=== PATIENT | male | born 1955 ===

== ENCOUNTER 2017-07-24 20:01 | Inpatient (IN) ==
[2017-07-24] MEDS ORDERED: ALBUTEROL 2.5 MG/3 ML NEB RESP TX PRN ×2 (21:49→22:38)
[2017-07-24] MEDS ORDERED: ONDANSETRON 4 MG/2 ML VIAL IV PRN (21:49)
[2017-07-24] MEDS ORDERED: DEXTROSE 50% 25 GM/50 ML VIAL IV PRN (22:11)
[2017-07-24] MEDS ORDERED: GLUCAGON 1 MG VIAL IM PRN (22:11)
[2017-07-24] MEDS ORDERED: PROPYLENE GLYCOL BOTH EYES PRN (22:38)
[2017-07-24] MEDS ORDERED: PEG BOTH EYES PRN (22:38)
[2017-07-25] MEDS ORDERED: APIXABAN 2.5 MG TABLET PO SCH ×2 (00:37→09:00)
[2017-07-25] MEDS: APIXABAN 2.5 MG TABLET PO SCH ×3 (01:30→21:12)
[2017-07-25 02:26] LABS: Basophils % 0.2 % (0.0-0.8); Eosinophils % 0.1 % (0.00-10.9); Hematocrit 29.6 VOL% (42.0-52.0); Immature Granulocytes % 0.5 %; Immature Granulocytes Absolute 0.06 #; Lymphocytes # 1.4 10*3/uL (1.4-4.0); Lymphocytes % 10.6 % (21.2-54.2); Mean Corpuscular HGB Conc 33.8 GM/DL (32-36); Mean Corpuscular Hemoglobin 33 PG (27-34); Mean Corpuscular Volume 97.4 FL (87-102); Mean Platelet Volume 9.7 FL (9.6-12.0); Monocytes # 0.7 10*3/uL (0.11-0.8); Monocytes % 5.2 % (1.7-12.7); NRBC # 0.02 10*3/uL; Neutrophils % 83.4 % (38.7-73.9); Platelet Count 138 T/CUMM (130-400); Red Blood Count 3.04 MC/CUMM (3.8-5.5); Red Cell Distribution Width 15.1 % (9.3-17.3); White Blood Count 13.2 T/CUMM (4-12)
[2017-07-25 03:05] LABS: Albumin 3.1 G/DL (3.4-5.0); Bilirubin,Total 0.7 MG/DL (0.2-1.0); Calcium 7.9 MG/DL (8.5-10.1); Osmolality,Calculated 280.2 MOS/KG (273-304); Potassium 4.7 MMOL/L (3.5-5.1); Total Protein 6.3 G/DL (6.4-8.3)
[2017-07-25] MEDS ORDERED: CLOPIDOGREL 300 MG TABLET PO ONE (06:31)
[2017-07-25] MEDS: CLOPIDOGREL 75 MG TABLET PO SCH (08:49)
[2017-07-25 08:50] LABS: Hepatitis A Ab IgM Quant 0.14 Index; Hepatitis A Ab IgM Result Negative (Negative); Hepatitis B Core IgM Quant 0.22 Index; Hepatitis B Core IgM Result Negative (Negative); Hepatitis B Surface Ag Quant < 0.10 Index; Hepatitis B Surface Ag Result Negative (Negative); Hepatitis C Virus Ab Quant 0.18 Index; Hepatitis C Virus Ab Result Negative (Negative)
[2017-07-25] MEDS ORDERED: ASPIRIN EC 81 MG TABLET PO SCH (09:00)
[2017-07-25] MEDS: CARVEDILOL 3.125 MG TABLET PO SCH ×2 (09:15→21:13)
[2017-07-25] MEDS: PANTOPRAZOLE 40 MG TABLET PO SCH (09:31)
[2017-07-25] MEDS ORDERED: EPOETIN ALFA 10,000 UNIT/1 ML VIAL IV PRN (16:09)
[2017-07-25] MEDS ORDERED: diphenhydrAMINE CAP 25 MG CAPSULE PO ONE (16:12)
[2017-07-25] MEDS ORDERED: DIAZEPAM 5 MG TABLET PO ONE (16:12)
[2017-07-25] MEDS ORDERED: MAGNESIUM SULF RIDER 2 GM in PREMIX 1 EACH IV PRN (18:36)
[2017-07-25] MEDS ORDERED: POTASSIUM CHLORIDE RIDER 10 MEQ in PREMIX 1 EACH IV PRN (18:36)
[2017-07-26 04:30] LABS: Basophils # 0.1 10*3/uL (0.0-0.2); Basophils % 0.6 % (0.0-0.8); Eosinophils # 0.3 10*3/uL (0.0-0.87); Eosinophils % 2.6 % (0.00-10.9); Hematocrit 31.8 VOL% (42.0-52.0); Hemoglobin 10.3 GM/DL (14.0-18.0); Immature Granulocytes % 0.4 %; Immature Granulocytes Absolute 0.04 #; Lymphocytes # 0.9 10*3/uL (1.4-4.0); Lymphocytes % 8.8 % (21.2-54.2); Mean Corpuscular HGB Conc 32.4 GM/DL (32-36); Mean Corpuscular Hemoglobin 33 PG (27-34); Mean Corpuscular Volume 101.3 FL (87-102); Mean Platelet Volume 9.8 FL (9.6-12.0); Monocytes % 9.5 % (1.7-12.7); NRBC # 0.06 10*3/uL; Neutrophils # 8.3 10*3/uL (1.4-7.4); Neutrophils % 78.1 % (38.7-73.9); Platelet Count 158 T/CUMM (130-400); Red Blood Count 3.14 MC/CUMM (3.8-5.5); Red Cell Distribution Width 15.3 % (9.3-17.3); White Blood Count 10.6 T/CUMM (4-12)
[2017-07-26 05:02] LABS: Calcium 8.4 MG/DL (8.5-10.1); Osmolality,Calculated 276.9 MOS/KG (273-304); Potassium 5.4 MMOL/L (3.5-5.1)
[2017-07-26 05:14] LABS: Risk Ratio 2.55; VLDL CHOLESTEROL 18.2 MG/DL
[2017-07-26] MEDS ORDERED: DIAZEPAM 5 MG TABLET PO ONE (06:30)
[2017-07-26] MEDS ORDERED: diphenhydrAMINE CAP 25 MG CAPSULE PO ONE (06:30)
[2017-07-26] MEDS ORDERED: HEPARIN/NACL 0.9% 2 UNITS/ML 1,000 ML IV ONE (06:51)
[2017-07-26] MEDS ORDERED: MIDAZOLAM 2 MG/2 ML VIAL ONE (07:11)
[2017-07-26] MEDS ORDERED: HYDROmorphone 2 MG/1 ML VIAL ONE (07:11)
[2017-07-26] MEDS ORDERED: NITROGLYCERIN SL 0.4 MG TABLET SL PRN (08:18)
[2017-07-26] MEDS ORDERED: FLUMAZENIL 0.5 MG/5 ML VIAL IV ONE ×2 (09:03→09:33)
[2017-07-26] MEDS ORDERED: ATROPINE 1 MG/10 ML SYRINGE ONE (09:07)
[2017-07-26] MEDS ORDERED: INSULIN REGULAR 100 UNIT/ML ONE (09:14)
[2017-07-26] MEDS ORDERED: VECURONIUM 10 MG VIAL IV ONE (09:15)
[2017-07-26] MEDS ORDERED: DEXTROSE 50% 25 GM/50 ML VIAL IV STA (09:16)
[2017-07-26] MEDS ORDERED: VECURONIUM 10 MG VIAL IV STA (09:17)
[2017-07-26 09:55] LABS: ABG Base Excess -8.1 MMOL/L (-2.5-2.5); ABG HCO3 17.9 MMOL/L (20-26); ABG Oxygen Saturation 99.7 % (95-100); ABG PCO2 38.9 MM HG (35-48); ABG PH 7.278 (7.35-7.45); ABG TCO2 16.6 MMOL/L (23-27)
[2017-07-26 10:12] LABS: Lactic Acid 6.4 MMOL/L (0.4-2.0)
[2017-07-26 10:14] LABS: Alanine Aminotransferase 141 U/L (16-61); Alkaline Phosphatase 187 U/L (45-117); Aspartate Amino Transferase 113 U/L (0-37); Bilirubin,Indirect 0.4 MG/DL (0.0-1.0); Blood Urea Nitrogen 70 MG/DL (7-18); CKMB % 2.9 %; Calcium 9.8 MG/DL (8.5-10.1); Glucose 244 MG/DL (74-106); Osmolality,Calculated 286.9 MOS/KG (273-304); Potassium 3.3 MMOL/L (3.5-5.1); Sodium 129 MMOL/L (136-145); Total Protein 6.3 G/DL (6.4-8.3)
[2017-07-26] MEDS ORDERED: INSULIN REGULAR 100 UNIT/ML IV STA (10:15)
[2017-07-26] MEDS: CLOPIDOGREL 75 MG TABLET PO SCH ×2 (10:24→13:08)
[2017-07-26] MEDS: CALCITRIOL 0.25 MCG CAPSULE PO SCH (10:24)
[2017-07-26] MEDS: PANTOPRAZOLE 40 MG TABLET PO SCH (10:24)
[2017-07-26] MEDS: CARVEDILOL 3.125 MG TABLET PO SCH ×2 (10:24→21:22)
[2017-07-26 12:39] LABS: Ammonia 32 UMOL/L (11-32)
[2017-07-26 13:16] LABS: Basophils % 0.2 % (0.0-0.8); Eosinophils % 0.1 % (0.00-10.9); Hematocrit 32.4 VOL% (42.0-52.0); Immature Granulocytes % 0.7 %; Immature Granulocytes Absolute 0.11 #; Lymphocytes # 0.3 10*3/uL (1.4-4.0); Lymphocytes % 1.6 % (21.2-54.2); Mean Corpuscular Hemoglobin 33 PG (27-34); Mean Corpuscular Volume 97.6 FL (87-102); Mean Platelet Volume 9.7 FL (9.6-12.0); Monocytes # 1.1 10*3/uL (0.11-0.8); Monocytes % 7.2 % (1.7-12.7); NRBC # 0.06 10*3/uL; Neutrophils # 14.3 10*3/uL (1.4-7.4); Neutrophils % 90.2 % (38.7-73.9); Platelet Count 176 T/CUMM (130-400); Red Blood Count 3.32 MC/CUMM (3.8-5.5); Red Cell Distribution Width 15.2 % (9.3-17.3); White Blood Count 15.9 T/CUMM (4-12)
[2017-07-26 13:51] LABS: Hypochromasia 2+; Macrocytosis 1+; Polychromasia Slight
[2017-07-26] MEDS ORDERED: GLUCAGON 1 MG VIAL IM PRN (15:25)
[2017-07-27 04:27] LABS: Basophils % 0.4 % (0.0-0.8); Eosinophils % 0.4 % (0.00-10.9); Hematocrit 29.3 VOL% (42.0-52.0); Immature Granulocytes % 0.4 %; Immature Granulocytes Absolute 0.04 #; Lymphocytes # 0.9 10*3/uL (1.4-4.0); Lymphocytes % 8.5 % (21.2-54.2); Mean Corpuscular HGB Conc 34.1 GM/DL (32-36); Mean Corpuscular Hemoglobin 33 PG (27-34); Mean Platelet Volume 9.6 FL (9.6-12.0); Monocytes # 1.1 10*3/uL (0.11-0.8); Monocytes % 10.9 % (1.7-12.7); NRBC # 0.04 10*3/uL; Neutrophils # 7.9 10*3/uL (1.4-7.4); Neutrophils % 79.4 % (38.7-73.9); Platelet Count 151 T/CUMM (130-400); Red Blood Count 2.99 MC/CUMM (3.8-5.5); Red Cell Distribution Width 15.1 % (9.3-17.3)
[2017-07-27 04:37] LABS: ABG Base Excess 3.8 MMOL/L (-2.5-2.5); ABG HCO3 25.7 MMOL/L (20-26); ABG Oxygen Saturation 97.3 % (95-100); ABG PCO2 29.2 MM HG (35-48); ABG PH 7.562 (7.35-7.45); ABG PO2 95.2 MM HG (80-95); ABG TCO2 26.6 MMOL/L (23-27); Pt O2 Delivery Device Ventilator
[2017-07-27 05:01] LABS: Bilirubin,Total 1.4 MG/DL (0.2-1.0); Calcium 8.6 MG/DL (8.5-10.1); Osmolality,Calculated 273.5 MOS/KG (273-304); Potassium 4.3 MMOL/L (3.5-5.1); Total Protein 6.3 G/DL (6.4-8.3)
[2017-07-27 05:17] LABS: Calcium 8.3 MG/DL (8.5-10.1); Osmolality,Calculated 276.4 MOS/KG (273-304); Potassium 4.3 MMOL/L (3.5-5.1)
[2017-07-27] MEDS: PANTOPRAZOLE 40 MG TABLET PO SCH (09:01)
[2017-07-27] MEDS: CALCITRIOL 0.25 MCG CAPSULE PO SCH (09:41)
[2017-07-27] MEDS: CLOPIDOGREL 75 MG TABLET PO SCH (09:41)
[2017-07-27] MEDS: CARVEDILOL 3.125 MG TABLET PO SCH ×2 (09:41→23:15)
[2017-07-27 09:47] LABS: ABG Base Excess 1.3 MMOL/L (-2.5-2.5); ABG HCO3 25.6 MMOL/L (20-26); ABG Oxygen Saturation 98.6 % (95-100); ABG PCO2 43.5 MM HG (35-48); ABG PH 7.392 (7.35-7.45); Allen Test Positive; Pt O2 Delivery Device Ventilator
[2017-07-27] MEDS: ALBUTEROL 2.5 MG/3 ML NEB RESP TX SCH ×2 (12:05→19:37)
[2017-07-28] MEDS: ALBUTEROL 2.5 MG/3 ML NEB RESP TX SCH ×4 (01:05→19:55)
[2017-07-28 05:29] LABS: Basophils % 0.3 % (0.0-0.8); Eosinophils # 0.2 10*3/uL (0.0-0.87); Hematocrit 28.1 VOL% (42.0-52.0); Hemoglobin 9.6 GM/DL (14.0-18.0); Immature Granulocytes % 0.4 %; Immature Granulocytes Absolute 0.04 #; Lymphocytes # 0.9 10*3/uL (1.4-4.0); Lymphocytes % 9.5 % (21.2-54.2); Mean Corpuscular HGB Conc 34.2 GM/DL (32-36); Mean Corpuscular Hemoglobin 33 PG (27-34); Mean Corpuscular Volume 97.9 FL (87-102); Mean Platelet Volume 9.7 FL (9.6-12.0); Monocytes # 1.1 10*3/uL (0.11-0.8); Monocytes % 11.6 % (1.7-12.7); NRBC # 0.03 10*3/uL; Neutrophils # 7.5 10*3/uL (1.4-7.4); Neutrophils % 76.2 % (38.7-73.9); Platelet Count 148 T/CUMM (130-400); Red Blood Count 2.87 MC/CUMM (3.8-5.5); Red Cell Distribution Width 15.8 % (9.3-17.3); White Blood Count 9.8 T/CUMM (4-12)
[2017-07-28 05:58] LABS: Calcium 7.6 MG/DL (8.5-10.1); Osmolality,Calculated 278.8 MOS/KG (273-304); Potassium 4.6 MMOL/L (3.5-5.1)
[2017-07-28 06:06] LABS: Albumin 2.9 G/DL (3.4-5.0); Bilirubin,Total 1.1 MG/DL (0.2-1.0); Calcium 7.6 MG/DL (8.5-10.1); Osmolality,Calculated 277.8 MOS/KG (273-304); Potassium 4.6 MMOL/L (3.5-5.1); Total Protein 5.9 G/DL (6.4-8.3)
[2017-07-28] MEDS: PANTOPRAZOLE 40 MG TABLET PO SCH (09:41)
[2017-07-28] MEDS: CLOPIDOGREL 75 MG TABLET PO SCH (09:42)
[2017-07-28] MEDS: APIXABAN 2.5 MG TABLET PO SCH ×2 (09:42→20:56)
[2017-07-28] MEDS: CARVEDILOL 3.125 MG TABLET PO SCH ×2 (09:42→20:56)
[2017-07-28] MEDS: CALCITRIOL 0.25 MCG CAPSULE PO SCH (09:42)
[2017-07-28] MEDS ORDERED: VANCOMYCIN INJ 750 MG in SODIUM CHLORIDE 0.9% 250 ML IV ONE (16:00)
[2017-07-29] MEDS: ALBUTEROL 2.5 MG/3 ML NEB RESP TX SCH ×4 (01:15→19:55)
[2017-07-29 06:18] LABS: Calcium 8.5 MG/DL (8.5-10.1); Osmolality,Calculated 278.2 MOS/KG (273-304); Potassium 4.7 MMOL/L (3.5-5.1)
[2017-07-29] MEDS ORDERED: BUPIVACAINE 0.5% 50 ML VIAL ONE (08:59)
[2017-07-29] MEDS ORDERED: fentaNYL 100 MCG/2 ML VIAL ONE (10:07)
[2017-07-29] MEDS ORDERED: ETOMIDATE 40 MG/20 ML VIAL IV ONE (10:07)
[2017-07-29] MEDS ORDERED: MIDAZOLAM 2 MG/2 ML VIAL ONE (10:07)
[2017-07-29] MEDS: APIXABAN 2.5 MG TABLET PO SCH ×2 (10:15→20:33)
[2017-07-29] MEDS: CLOPIDOGREL 75 MG TABLET PO SCH (10:15)
[2017-07-29] MEDS: CARVEDILOL 3.125 MG TABLET PO SCH (10:15)
[2017-07-29] MEDS: PANTOPRAZOLE 40 MG TABLET PO SCH (10:15)
[2017-07-29] MEDS: CALCITRIOL 0.25 MCG CAPSULE PO SCH (10:15)
[2017-07-29] MEDS: oxyCODONE/ACETAMINOPHEN 5-325 MG TABLET PO PRN ×3 (15:29→23:05)
[2017-07-29] MEDS: CARVEDILOL 6.25 MG TABLET PO SCH (18:00)
[2017-07-30] MEDS: ALBUTEROL 2.5 MG/3 ML NEB RESP TX SCH ×4 (00:59→20:04)
[2017-07-30] MEDS: oxyCODONE/ACETAMINOPHEN 5-325 MG TABLET PO PRN ×5 (01:24→20:00)
[2017-07-30 04:23] LABS: Basophils % 0.5 % (0.0-0.8); Eosinophils # 0.4 10*3/uL (0.0-0.87); Eosinophils % 4.5 % (0.00-10.9); Hematocrit 29.1 VOL% (42.0-52.0); Hemoglobin 9.8 GM/DL (14.0-18.0); Immature Granulocytes % 0.6 %; Immature Granulocytes Absolute 0.05 #; Lymphocytes # 0.8 10*3/uL (1.4-4.0); Lymphocytes % 9.3 % (21.2-54.2); Mean Corpuscular HGB Conc 33.7 GM/DL (32-36); Mean Corpuscular Hemoglobin 33 PG (27-34); Mean Corpuscular Volume 98.6 FL (87-102); Mean Platelet Volume 9.6 FL (9.6-12.0); Monocytes # 0.8 10*3/uL (0.11-0.8); Monocytes % 9.1 % (1.7-12.7); NRBC # 0.02 10*3/uL; Neutrophils # 6.7 10*3/uL (1.4-7.4); Platelet Count 168 T/CUMM (130-400); Red Blood Count 2.95 MC/CUMM (3.8-5.5); Red Cell Distribution Width 15.9 % (9.3-17.3); White Blood Count 8.9 T/CUMM (4-12)
[2017-07-30 04:57] LABS: Calcium 8.5 MG/DL (8.5-10.1); Osmolality,Calculated 275.5 MOS/KG (273-304)
[2017-07-30] MEDS: CALCITRIOL 0.25 MCG CAPSULE PO SCH (09:16)
[2017-07-30] MEDS: CARVEDILOL 6.25 MG TABLET PO SCH (09:16)
[2017-07-30] MEDS: APIXABAN 2.5 MG TABLET PO SCH ×2 (09:16→20:00)
[2017-07-30] MEDS: ISOSORBIDE MONONITRATE 30 MG TABLET PO SCH (09:17)
[2017-07-30] MEDS: PANTOPRAZOLE 40 MG TABLET PO SCH (09:17)
[2017-07-30] MEDS: CLOPIDOGREL 75 MG TABLET PO SCH (09:17)
[2017-07-30] MEDS: CARVEDILOL 3.125 MG TABLET PO SCH (16:04)
[2017-07-31] MEDS: oxyCODONE/ACETAMINOPHEN 5-325 MG TABLET PO PRN ×4 (00:03→17:08)
[2017-07-31] MEDS: ALBUTEROL 2.5 MG/3 ML NEB RESP TX SCH ×4 (01:44→21:14)
[2017-07-31 06:26] LABS: Basophils # 0.1 10*3/uL (0.0-0.2); Basophils % 0.6 % (0.0-0.8); Eosinophils # 0.4 10*3/uL (0.0-0.87); Eosinophils % 4.2 % (0.00-10.9); Hematocrit 29.6 VOL% (42.0-52.0); Hemoglobin 9.5 GM/DL (14.0-18.0); Immature Granulocytes % 0.4 %; Immature Granulocytes Absolute 0.03 #; Lymphocytes # 0.9 10*3/uL (1.4-4.0); Lymphocytes % 10.8 % (21.2-54.2); Mean Corpuscular HGB Conc 32.1 GM/DL (32-36); Mean Corpuscular Hemoglobin 33 PG (27-34); Mean Corpuscular Volume 102.1 FL (87-102); Mean Platelet Volume 9.3 FL (9.6-12.0); Monocytes # 0.8 10*3/uL (0.11-0.8); Monocytes % 9.7 % (1.7-12.7); NRBC # 0.02 10*3/uL; Neutrophils # 6.1 10*3/uL (1.4-7.4); Neutrophils % 74.3 % (38.7-73.9); Platelet Count 173 T/CUMM (130-400); White Blood Count 8.2 T/CUMM (4-12)
[2017-07-31 07:06] LABS: Albumin 2.6 G/DL (3.4-5.0); Bilirubin,Total 0.8 MG/DL (0.2-1.0); Calcium 8.3 MG/DL (8.5-10.1); Osmolality,Calculated 271.4 MOS/KG (273-304); Potassium 4.4 MMOL/L (3.5-5.1)
[2017-07-31] MEDS: APIXABAN 2.5 MG TABLET PO SCH ×2 (08:20→21:41)
[2017-07-31] MEDS: CARVEDILOL 3.125 MG TABLET PO SCH ×2 (08:20→17:58)
[2017-07-31] MEDS: ISOSORBIDE MONONITRATE 30 MG TABLET PO SCH (08:21)
[2017-07-31] MEDS: CALCITRIOL 0.25 MCG CAPSULE PO SCH (08:21)
[2017-07-31] MEDS: CLOPIDOGREL 75 MG TABLET PO SCH (08:22)
[2017-07-31] MEDS: PANTOPRAZOLE 40 MG TABLET PO SCH (08:22)
[2017-08-01] MEDS: ALBUTEROL 2.5 MG/3 ML NEB RESP TX SCH ×4 (02:51→19:16)
[2017-08-01] MEDS: PANTOPRAZOLE 40 MG TABLET PO SCH (09:47)
[2017-08-01] MEDS: CALCITRIOL 0.25 MCG CAPSULE PO SCH (09:47)
[2017-08-01] MEDS: CLOPIDOGREL 75 MG TABLET PO SCH (09:48)
[2017-08-01] MEDS: CARVEDILOL 3.125 MG TABLET PO SCH ×2 (09:48→17:10)
[2017-08-01] MEDS: APIXABAN 2.5 MG TABLET PO SCH ×2 (09:48→21:50)
[2017-08-01] MEDS: ISOSORBIDE MONONITRATE 30 MG TABLET PO SCH (09:48)
[2017-08-02] MEDS: ALBUTEROL 2.5 MG/3 ML NEB RESP TX SCH ×3 (00:27→12:07)
[2017-08-02 05:23] LABS: Basophils # 0.1 10*3/uL (0.0-0.2); Basophils % 0.7 % (0.0-0.8); Eosinophils # 0.2 10*3/uL (0.0-0.87); Eosinophils % 2.5 % (0.00-10.9); Hematocrit 29.5 VOL% (42.0-52.0); Hemoglobin 9.7 GM/DL (14.0-18.0); Immature Granulocytes % 0.5 %; Immature Granulocytes Absolute 0.04 #; Lymphocytes # 0.9 10*3/uL (1.4-4.0); Lymphocytes % 11.8 % (21.2-54.2); Mean Corpuscular HGB Conc 32.9 GM/DL (32-36); Mean Corpuscular Hemoglobin 33 PG (27-34); Mean Corpuscular Volume 99.3 FL (87-102); Mean Platelet Volume 9.5 FL (9.6-12.0); Monocytes # 0.7 10*3/uL (0.11-0.8); Monocytes % 9.2 % (1.7-12.7); Neutrophils # 5.5 10*3/uL (1.4-7.4); Neutrophils % 75.3 % (38.7-73.9); Platelet Count 183 T/CUMM (130-400); Red Blood Count 2.97 MC/CUMM (3.8-5.5); Red Cell Distribution Width 15.7 % (9.3-17.3); White Blood Count 7.3 T/CUMM (4-12)
[2017-08-02 05:53] LABS: Albumin 2.6 G/DL (3.4-5.0); Calcium 8.2 MG/DL (8.5-10.1); Osmolality,Calculated 274.5 MOS/KG (273-304); Potassium 4.6 MMOL/L (3.5-5.1)
[2017-08-02 06:21] LABS: Calcium 8.2 MG/DL (8.5-10.1); Osmolality,Calculated 273.7 MOS/KG (273-304); Potassium 4.6 MMOL/L (3.5-5.1)
[2017-08-02] MEDS: CARVEDILOL 3.125 MG TABLET PO SCH (08:44)
[2017-08-02] MEDS: APIXABAN 2.5 MG TABLET PO SCH (08:44)
[2017-08-02] MEDS: PANTOPRAZOLE 40 MG TABLET PO SCH (08:44)
[2017-08-02] MEDS: CLOPIDOGREL 75 MG TABLET PO SCH (08:44)
[2017-08-02] MEDS: CALCITRIOL 0.25 MCG CAPSULE PO SCH (08:44)
[2017-08-02] MEDS: ISOSORBIDE MONONITRATE 30 MG TABLET PO SCH (08:44)
[2017-08-02 16:05] VITALS: BP 132/60
== END 2017-08-02 16:26 | disposition home or self-care (01) | DRG 255 ==
LOC: N.CC 21:29 → SUATTDRO 21:29 → N.TELES 07-31 13:45
PROVIDERS: ADMIT Internal Medicine
PROC: CLCCHCL (ICD-10-PCS; 2017-07-26 07:45)